=== PATIENT | male | born 1930 | race Caucasian/White ===

== ENCOUNTER 2016-10-27 08:57 | Inpatient (IN) | payer MEDICARE ==
--- NOTE | ~2016-10-27 | HP ---
History And Physical [place] [id number] [facility] [place]. [address] NAME: NYASIA SCHWARTZ SR : 29 STATUS : ADM IN PAT#: [id number] AGE: 86 ADM/REG DATE : 10/27/16 MR#: [id number] REPORT SERV DATE: 10/27/16 DICTATED BY: GONZALO MURCIA DATE: 10/27/16 REPORT STATUS : Draft TRANSCRIBED BY: MODL DATE: 10/27/16 DATE OF ADMISSION: 10/27/2016 CHIEF COMPLAINT: Altered mental status, hypoxia, and hypotension. HISTORY OF PRESENT ILLNESS: The patient is an 86-year-old male. He was just discharged from [facility] approximately 24 hours per history supplied by his daughter and power of hr advisor. She states that he was there for hip fracture. On reviewing his medical records, it appears he did come in for a fall with fracture. He underwent consultation from Cardiology and Urology for atrial fibrillation and hematuria. He was transferred over to rehab yesterday. The patient's daughter states in the course of 24 hours, he became acutely more confused. She was notified by staff that he was getting hypotensive, hypoxic, and confused. He was brought to the emergency department where he was noted to be in distress with multiple issues. He was hypoxic, sat came up to the low 90s on 100% non-rebreather. He was not febrile. He was confused. Subsequent evaluation of the labs noted a markedly elevated troponin at 4.58, significant elevated AST, ALT, new onset renal failure from 0.9 at discharge to 1.95 today, and he had an infiltrate on his chest x-ray. Per my discussion with the patient's daughter, HOWIE, and also Dr. Billings's discussion, given his difficult hospital course over at [facility], his advancing dementia and difficulty with ambulation and quality of life, she has elected at this point to execute the DNR order. She states that she has spoken to her brother who was also involved in his medical care and he has concurred with this decision. All her questions were answered and she does request continued treatment of his underlying medical problems as best can be done medically without any heroic interventions. PAST MEDICAL HISTORY: As covered above. PAST SURGICAL HISTORY: Recent hip surgery. CURRENT MEDICATIONS: DuoNeb, Ventolin, Abilify 10, Lipitor 10, Dulcolax 10, Ceftin 500 b.i.d., Cardizem CD 180, docusate sodium, Aricept 10, Lovenox 30 q.12h, Pepcid 20 b.i.d., iron 325 b.i.d., Flonase, Lasix 40, Neurontin 800 t.i.d., [place] 7.5/325 q.4, Levemir 10 at bedtime, Humulin sliding scale, Prinivil 10, milk of Mag 30, Centrum, potassium 20, Florastor 250, Zoloft 50, Venelex ointment, and Fleet enema. ALLERGIES: CONTRAST DYE, SYMPATHOMIMETIC AGENTS, BETA-BLOCKERS, SULFA, MORPHINE, AND METAPROTERENOL. FAMILY HISTORY: Noncontributory. SOCIAL HISTORY: Resides at the intermediate. Retired. Nondrinker, nonsmoker. REVIEW OF SYSTEMS: The patient is not able to reliably give given his dementia and acutely ill state. Daughter has no other information except as noted above. History And Physical [address] [address] NAME: NYASIA SCHWARTZ SR : 29 STATUS : ADM IN [facility]#: [id number] AGE: 86 ADM/REG DATE : 10/27/16 MR#: [id number] REPORT SERV DATE: 10/27/16 DICTATED BY: GONZALO MURCIA DATE: 10/27/16 REPORT STATUS : Draft TRANSCRIBED BY: TAMMY DATE: 10/27/16 PHYSICAL EXAMINATION: VITAL SIGNS: BP 86/62, sat 96% on a non-rebreather, temp 98.2, pulse 94, respirations 22. GENERAL: Awake. He does react. He does not follow commands. His speech is not coherent. HEENT: Normocephalic, atraumatic. Sclerae nonicteric. NECK: Supple. HEART: Irregularly irregular. LUNGS: Show coarse breath sounds and decreased breath sounds throughout all lung spivey. ABDOMEN: Obese. Benign. EXTREMITIES: Trace to 1+ edema. LABORATORY DATA: ABG; pH 7.43, CO2 35, O2 61, sat 90%. Procalcitonin 0.28, sodium 136, potassium 5.3, chloride 100, CO2 25, BUN and creatinine 32 and 1.95, glucose 287, total bilirubin 1.2, AST and ALT are 3191 and 980, lipase 70, troponin is 4.58. Recent TSH is 1.63. BNP 107. Lactate 4.7. White count 10, H and H 9.8 and 30.5, platelets 320. INR 1.7. Urinalysis; cloudy, 100 protein, 2 urobilinogens, small LE, 6 wbc's. Chest x-ray was read as slightly improved aeration of the lungs, no new abnormalities, minimal atelectasis or infiltrates. He appears to have a right infiltrate by my interpretation. EKG shows 1st degree, no acute ST changes. ASSESSMENT: Significant multiorgan failure in an advanced aged patient with dementia. New findings includes hepatic liver congestion, elevated troponin, elevated creatinine, hypoxia, probable infiltrate in the right lobe and overall significant decline in the past 24 hours. PLAN: Given the patient's medical prognosis, his previous quality of life, and his difficult hospital course, daughter and POA wishes to execute a DNR order. I answered all her questions. She stated her other sibling, her brother, was in agreement. She states she has contact and discuss with him. Went to the floor. We will continue high-flow O2, antibiotics, diuretics, serial lab, close observation, and comfort measures if he fails to improve. TLF/MODL Gonzalo Murcia M.D. / [id number]
--- NOTE | ~2016-10-27 | DS ---
Discharge Summary [facility] [address] [place]. [address] NAME: NYASIA SCHWARTZ SR : 29 STATUS : ADM IN PAT#: [id number] AGE: 86 ADM/REG DATE : 10/27/16 MR#: [id number] REPORT SERV DATE: 10/28/16 DICTATED BY: GONZALO MURCIA DATE: 10/28/16 REPORT STATUS : Draft TRANSCRIBED BY: MODL DATE: 10/28/16 ADMISSION DATE: 10/27/2016 DISCHARGE DATE: 10/28/2016 SUMMARY FINAL HOSPITAL DIAGNOSES: 1. Non-ST segment elevation myocardial infarction. 2. Recent hip surgery. 3. Acute kidney injury. 4. Elevated LFTs. 5. Hypotension. 6. Hypoxia. 7. Altered mental status. CONSULTATIONS: None. PROCEDURES: None. CURRENT PHYSICAL FINDINGS AND HISTORY OF PRESENT ILLNESS: Please see dictated H and P by myself. In brief, the patient was an 86-year-old male, who was recently hospitalized at [facility] for hip fracture repair, had new diagnoses hematuria and atrial fibrillation at that time. He presented here on the evening of 10/27/2016 from rehab with hypoxia, hypotension, and altered mental status. Vital signs at time of admission, BP was 86/62, temperature was 98.2, and the patient remained afebrile during his hospital stay. His heart rate was 81, respiratory rate was 20. LABORATORY WORK: ABG showed a pH of 7.43, CO2 35, O2 61, bicarb 22.4 with a sat of 90%. Procalcitonin was initially 0.28, subsequent was 0.54 on 10/28/2016. Creatinine was 1.95 on admission, 1.32 the following day. Initial LFTs showed AST of 3191 and improved to 1980 the following day, and 980 on ALT and 854 the following day. Initial troponin was noted to be 4.58 with subsequent troponin 23.4, and a 3rd troponin 12.4. Initial BNP was 107.9, 354 the following day. Initial lactate was 4.7, subsequent were 2.9 and 1.7. Initial white count was 7.6 with count of 12 the following day. His last H and H was 9 and 27.6. D-dimer was 2.43. Blood cultures to date were negative. Chest x-ray was read as slightly improved aeration of lungs, bibasilar atelectasis or infiltrate. Echocardiogram and lower extremity Dopplers were pending at the time of this dictation. HOSPITAL COURSE: The patient was initially admitted with multiorgan failure. After a long discussion with his power of food service ambassador in the emergency department, a DNR order was requested. The patient was admitted to the floor. He was initially requiring high flow O2. He was started on reasonable pain medications. Serial EKGs were ordered. Sepsis parameters were ordered. IV fluids were given for his high creatinine. He was given breathing treatments, and he was assessed for ability to swallow. He was started on heparin protocol. There was initial concern of bleeding risk given his previous hematuria and some bleeding Discharge Summary [address] [place]. [address] NAME: NYASIA SCHWARTZ SR : 29 STATUS : ADM IN PAT#: [id number] AGE: 86 ADM/REG DATE : 10/27/16 MR#: [id number] REPORT SERV DATE: 10/28/16 DICTATED BY: GONZALO MURCIA DATE: 10/28/16 REPORT STATUS : Draft TRANSCRIBED BY: TAMMY DATE: 10/28/16 from his orthopedic site but with his elevated troponin, it was felt clinically indicated. Heparin was initiated. His Lovenox was discontinued. An echocardiogram was requested, and he was started on nitroglycerin. He had a potential allergy to beta blockers and he was n.p.o. since these were not initiated. Serial EKG was unremarkable. He was reassessed the following morning. He had actually had some stabilization of his respiratory status, some improvement in his lab work and a trending down on his troponin. He had tolerated the heparinization. He was reassessed for swallowing and orders were left for his home medications. D-dimer with lower extremity ultrasound and echocardiogram were pending. The patient seemed to be improving. Nursing notified me approximately at 1:45, the patient became acutely dyspneic, confused, and anxious. When I assessed the patient shortly afterward, he was noted to have no spontaneous heart rate, respiration, pulse and was pronounced at approximately 2 p.m. Notification of the family is currently pending. DISPOSITION: Pronounced 10/28/2016, at 2 o'clock. RUTH/TAMMY Gonzalo Murcia M.D. / [id number] CC: Gonzalo Murcia M.D.
[~2016-10-27 08:57] MED LIST: ABILIFY10 PO; ARICEPT10 PO; ASAB PO; DILT-XR180 MG PO; DSS PO; INSNOVN SC; KLOR-CON M2020 MEQ PO; L40 PO; LIPITOR10 PO; NEUR800 PO; NORCO1 TA1 PO; NOVOLOG SC; PRIN20 PO; RANITIDINE300 MG PO; SYMBICORT 80/4.1 INH INH; T3 PO; THEO-24400 MG PO; VENTOLIN HFA INH; ZOL100 PO; [UNRECOGNIZED DRUG - OTHER] TD
[2016-10-27 09:19] LABS: ALLENS TEST Pos; BE (BASE EXCESS) -1.6 MEQ/L (0 +/- 2.5); CARBOXYHEMOGLOBIN 1.6 % (0-3); DEVICE NRB; HCO3 (ACTUAL BICARBONATE) 22.4 MEQ/L (23-27); HEMOBLOGIN CONTENT 9.8 G/DL (14-18); INSTRUMENT SERIAL # 8087; METHEMOGLOBIN 0.2 % (0-3); O2 CONTENT 12.2 VOL% (18-24); OPERATOR ID 32214; PCO2 (CO2 TENSION) 35 MMHG (35-45); PO2 (O2 TENSION) 61 MMHG (79-93); SAMPLE Arterial; pH 7.43 (7.37-7.43)
[2016-10-27 09:51] LABS: ASCORBIC ACID (UR NOT ORDER) NEG (NEG); BILIRUBIN, URINE NEGATIVE (NEG); ER URINALYSIS TAT 0 Hrs 00 Mins; KETONE, URINE NEGATIVE (NEG); LEUKOCYTE ESTERASE(NOT OR SMALL (NEG); NITRITE (URINE) NEG (NEG); WBC (NOT ORDERED) (RFLEX) 6 (0-5)
[2016-10-27 09:51] LABS: BASOPHILS 0.2 %; BASOPHILS ABSOLUTE 0.02 10/3/uL (0.0-0.16); EOSINOPHILS 0.1 %; EOSINOPHILS ABSOLUTE 0.01 10/3/uL (0.0-0.53); ER CBC TAT 0 Hrs 15 Mins; HEMATOCRIT 30.5 % (40.0-51.0); HEMOGLOBIN 9.8 g/dL (13.6-17.8); IMMATURE GRANULOCYTES 1.3 %; IMMATURE GRANULOCYTES ABSOLUTE 0.13 10/3/uL (0.0-0.11); LYMPHOCYTES 8.8 %; LYMPHOCYTES ABSOLUTE 0.89 10/3/uL (0.67-4.30); MEAN CORPUS HGB CONC 32.1 g/dL (32.0-36.0); MEAN CORPUSCULAR HEMOGLOB 28.9 pg (26.0-34.0); MEAN PLATELET VOLUME 10.3 fL (9.2-13.0); MONOCYTES 4.5 %; MONOCYTES ABSOLUTE 0.46 10/3/uL (0.21-1.20); NEUTROPHILS 85.1 %; NEUTROPHILS ABSOLUTE 8.63 10/3/uL (2.02-8.40); WHITE BLOOD CELLS 10.1 10/3/uL (4.5-10.5)
[2016-10-27 09:52] LABS: RED CELL COUNT 3.39 10/6/uL (4.7-6.1)
[2016-10-27 09:53] LABS: INTERNATIONAL NORMAL RATI 1.7 UNITS (-); MANUAL DIFF NO %; PLATELET COUNT 320 10/3/uL (150-400); RBC DISTRIBUTION WIDTH 19.2 % (12.0-16.0)
[2016-10-27 09:54] LABS: PARTIAL THROMBO TIME 42.2 SEC (22.5-37.2); PROTIME (NOT ORD) 20.1 SEC (12.0-14.5)
[2016-10-27 10:01] LABS: LACTATE 4.7 MMOL/L (0.3-2.4)
[2016-10-27 10:08] LABS: ALBUMIN 2.1 G/DL (3.5-5.0); ALKALINE PHOSPHATASE 76 U/L (45-117); CALCIUM, SERUM 8.5 MG/DL (8.5-10.4); CHLORIDE, SERUM 100 MMOL/L (96-112); CO2 (CARBON DIOXIDE) 25 MMOL/L (24-34); DIRECT BILIRUBIN 0.5 MG/DL (0.0-0.4); INDIRECT BILIRUBIN(NOT ORDER) 0.7 MG/DL (0.1-0.9); SGOT(AST) 3191 U/L (5-40); SGPT(ALT) 980 U/L (5-65); SODIUM, SERUM 136 MMOL/L (135-148); TOTAL BILIRUBIN 1.2 MG/DL (0-1.2); TOTAL PROTEIN 6.8 G/DL (6.0-8.5)
[2016-10-27 10:10] LABS: BUN (BLOOD UREA NITROGEN) 32 MG/DL (6-23); CHEST PAIN PROFILE TAT 0 Hrs 34 Mins; CREATININE 1.95 MG/DL (0.70-1.30); GFR AFRICAN AMERICAN 35 ML/MIN (>=60); GFR NON AFRICAN AMERICAN 30 ML/MIN (>=60); GLUCOSE, SERUM 287 MG/DL (60-99); POTASSIUM, SERUM 5.3 MMOL/L (3.5-5.3); TROPONIN I 4.58 NG/ML (<0.05)
[2016-10-27] MEDS ORDERED: ABILIFY10 PO (10:23)
[2016-10-27] MEDS ORDERED: D.O.S.100 MG PO (10:24)
[2016-10-27] MEDS ORDERED: ARICEPT10 PO (10:24)
[2016-10-27] MEDS ORDERED: CARDCD180 PO (10:24)
[2016-10-27] MEDS ORDERED: LIPITOR10 PO (10:24)
[2016-10-27] MEDS ORDERED: PEP20 PO (10:25)
[2016-10-27] MEDS ORDERED: LOVENOX SC (10:25)
[2016-10-27] MEDS ORDERED: FLONASE NAS (10:26)
[2016-10-27] MEDS ORDERED: FERROUS SULF325 M1 PO (10:26)
[2016-10-27] MEDS ORDERED: L40 PO (10:26)
[2016-10-27] MEDS ORDERED: FLORASTOR250 MG PO (10:26)
[2016-10-27] MEDS ORDERED: NEUR800 PO (10:27)
[2016-10-27] MEDS ORDERED: HUMALOGPEN SC (10:27)
[2016-10-27] MEDS ORDERED: LEVEMFLXPN SC (10:28)
[2016-10-27] MEDS ORDERED: PRIN10 PO (10:28)
[2016-10-27] MEDS ORDERED: DUONEB INH (10:28)
[2016-10-27] MEDS ORDERED: ZOL50 PO (10:29)
[2016-10-27] MEDS ORDERED: CENTRUM PO (10:29)
[2016-10-27] MEDS ORDERED: KDUR20 PO (10:29)
[2016-10-27] MEDS ORDERED: VENELEX OINTMENT TOP (10:30)
[2016-10-27] MEDS ORDERED: BISR PR (10:32)
[2016-10-27] MEDS ORDERED: FLEETS ENEMA PR (10:34)
[2016-10-27] MEDS ORDERED: HUMULIN R1 ML SC (10:34)
[2016-10-27] MEDS ORDERED: VENTOLIN HFA INH (10:35)
[2016-10-27] MEDS ORDERED: NORCO1 TA2 PO (10:35)
[2016-10-27] MEDS ORDERED: MOMUD PO (10:35)
[2016-10-27] MEDS ORDERED: CEFT5 PO (10:37)
[2016-10-27 11:16] LABS: PROCALCITONIN 0.28 ng/mL (<0.5)
[2016-10-28 06:09] LABS: HEMATOCRIT 27.6 % (40.0-51.0); MEAN CORPUS HGB CONC 32.6 g/dL (32.0-36.0); MEAN CORPUSCULAR HEMOGLOB 29.4 pg (26.0-34.0); MEAN CORPUSCULAR VOLUME 90.2 fL (80-100); MEAN PLATELET VOLUME 10.2 fL (9.2-13.0); PLATELET COUNT 384 10/3/uL (150-400); RBC DISTRIBUTION WIDTH 18.7 % (12.0-16.0); RED CELL COUNT 3.06 10/6/uL (4.7-6.1)
[2016-10-28 06:16] LABS: MANUAL DIFF YES %
[2016-10-28 06:49] LABS: BAND NEUTROPHILS 2 %; EOSINOPHILS 2 %; EOSINOPHILS ABSOLUTE (CALC) 0.24 10/3/uL (0.0-0.53); LYMPHOCYTES 13 %; LYMPHOCYTES ABSOLUTE (CALC) 1.56 10/3/uL (0.67-4.30); MONOCYTES 2 %; MONOCYTES ABSOLUTE (CALC) 0.24 10/3/uL (0.21-1.20); NEUTROPHILS ABSOLUTE (CALC) 9.96 10/3/uL (2.02-8.40); SEGMENTED NEUTROPHIL (0) 81 %; TOTAL NUCLEATED CELLS 100
[2016-10-28 06:51] LABS: ANISOCYTOSIS 1+ (5-10/OIF) (0-5/OIF); PLATELET ESTIMATE ADQ (ADEQUATE)
[2016-10-28 08:31] LABS: A/G RATIO 0.4 (0.7-1.9); ALBUMIN 1.9 G/DL (3.5-5.0); ALKALINE PHOSPHATASE 76 U/L (45-117); BUN (BLOOD UREA NITROGEN) 38 MG/DL (6-23); CALCIUM, SERUM 8.4 MG/DL (8.5-10.4); CHLORIDE, SERUM 104 MMOL/L (96-112); CO2 (CARBON DIOXIDE) 24 MMOL/L (24-34); GLOBULIN 4.3 G/DL (2.5-4.1); GLUCOSE, SERUM 247 MG/DL (60-99); POTASSIUM, SERUM 4.2 MMOL/L (3.5-5.3); SGOT(AST) 1980 U/L (5-40); SGPT(ALT) 854 U/L (5-65); SODIUM, SERUM 138 MMOL/L (135-148); TOTAL PROTEIN 6.2 G/DL (6.0-8.5)
[2016-10-28 08:32] LABS: CREATININE 1.32 MG/DL (0.70-1.30); GFR AFRICAN AMERICAN 56 ML/MIN (>=60); GFR NON AFRICAN AMERICAN 48 ML/MIN (>=60); TOTAL BILIRUBIN 0.7 MG/DL (0-1.2)
[2016-10-28 09:18] LABS: PROCALCITONIN 0.54 ng/mL (<0.5)
[2016-10-28 12:07] LABS: PARTIAL THROMBO TIME 60.1 SEC (22.5-37.2)
[2016-10-28 12:09] LABS: D-DIMER QUANTITATIVE 2.43 ug/mLFEU (< 0.50)
== END 2016-10-28 22:09 | disposition expired ==
LOC: ER 08:57 → 2SO 12:22
PROVIDERS: Emergency Medicine; Internal Medicine
DX: I21.4 Non-ST elevation (NSTEMI) myocardial infarction (principal); J96.91 Respiratory failure, unspecified with hypoxia; N17.9 Acute kidney failure, unspecified; I95.9 Hypotension, unspecified; K76.1 Chronic passive congestion of liver; F03.90 Unspecified dementia, unspecified severity, without behavioral disturbance, psychotic disturbance, mood disturbance, and anxiety; E11.9 Type 2 diabetes mellitus without complications; I48.91 Unspecified atrial fibrillation; J98.11 Atelectasis; R09.02 Hypoxemia; E78.00 Pure hypercholesterolemia, unspecified; I10 Essential (primary) hypertension; Z66 Do not resuscitate; Z79.4 Long term (current) use of insulin; Z79.891 Long term (current) use of opiate analgesic; Z79.899 Other long term (current) drug therapy; Z91.041 Radiographic dye allergy status; Z88.2 Allergy status to sulfonamides; Z88.5 Allergy status to narcotic agent; Z88.8 Allergy status to other drugs, medicaments and biological substances
CPT/HCPCS: 36600; 71010; 80048; 80053; 80076; 81001; 82140; 82805; 82962; 83605; 83690; 83735; 83880; 84145; 84484; 85025; 85347; 85379; 85610; 85730; 87040; 87086; 93005; 94640; 96374; 96375; 99291; A9270-GY; J0456; J0692; J2930; J3370